=== PATIENT | male | born 1940 | race Caucasian/White ===

== ENCOUNTER → 2017-01-29 | Outpatient (CLI) | payer OTHER, MEDICARE | LOC: MW.LAB 09:14 | PROVIDERS: ATTEND Internal Medicine Interventional Cardiology | DX: I48.2 Chronic atrial fibrillation (principal) | CPT/HCPCS: 36415; 85610 ==

== ENCOUNTER → 2017-02-26 | Outpatient (CLI) | payer OTHER, MEDICARE | LOC: MW.LAB 09:06 | PROVIDERS: ATTEND Internal Medicine Interventional Cardiology | DX: Z51.81 Encounter for therapeutic drug level monitoring (principal) | CPT/HCPCS: 36415; 85610 ==

== ENCOUNTER → 2017-03-26 | Outpatient (CLI) | payer OTHER | LOC: MW.LAB 09:02 | PROVIDERS: ATTEND Internal Medicine Interventional Cardiology | DX: I48.2 Chronic atrial fibrillation (principal) | CPT/HCPCS: 36415; 85610 ==

== ENCOUNTER 2018-04-26 09:31 | Day surgery (SDC) | payer MEDICARE, OTHER ==
[~2018-04-26 09:31] MED LIST: Lactated Ringers 1,000 ML IV SCH
[2018-04-26] MEDS ORDERED: Propofol 200 MG/20 ML SDV ONE ×2 (09:53→10:30)
[2018-04-26] MEDS ORDERED: fentaNYL 100 MCG/2 ML SDV ONE (09:53)
[2018-04-26] MEDS ORDERED: Lidocaine 2% 5 ML SDV ONE (09:53)
[2018-04-26] MEDS ORDERED: Midazolam 1 MG/ML 2 ML SDV ONE (09:53)
--- NOTE | 2018-04-26 10:13 | PCM.PREANE ---
Preanesthetic Assessment - Anesthesia/Transfusion/Family Hx Anesthesia History: Prior Anesthesia Without Reaction Family History of Anesthesia Reaction: No Transfusion History: No Prior Transfusion(s) Intubation History: Unknown - Review of Systems General: No Symptoms Pulmonary: No Symptoms Cardiovascular: No Symptoms Gastrointestinal: No Symptoms, Other (screening colonoscopy) Neurological: No Symptoms Other: Reports: None - Physical Assessment Height: 1.88 m Weight: 109.316 kg ASA Class: 3 Mental Status: Alert & Oriented x3 Airway Class: Mallampati = 2 Dentition: Reports: Normal Dentition, Missing Tooth/Teeth (x1 right upper (back) ) Thyro-Mental Finger Breadths: 3 Mouth Opening Finger Breadths: 2 Lungs: Normal Respiratory Effort Cardiovascular: Regular Rate, Regular Rhythm - Allergies Allergies/Adverse Reactions: Allergies Allergy/AdvReac Type Severity Reaction Status Date / Time codeine Allergy Unknown Stomach Verified 04/23/18 10:19 Upset - Blood Blood Available: No - Anesthesia Plan Pre-Op Medication Ordered: None - Acknowledgements Anesthesia Type Planned: MAC Pt an Appropriate Candidate for the Planned Anesthesia: Yes Alternatives and Risks of Anesthesia Discussed w Pt/Guardian: Yes Pt/Guardian Understands and Agrees with Anesthesia Plan: Yes PreAnesthesia Questionnaire HEENT History: Reports: None Cardiovascular History: Reports: Afib, CAD, High Cholesterol, Hypertension, [place], Stents (x3 all in RCA- 00, , '14) Other Cardiovascular History: [place] x2 small ones Respiratory History: Reports: Bronchitis, Recurrent Genitourinary History: Reports: BPH, Prostate Disorder Other Genitourinary History: hx prostate cancer with radiation Musculoskeletal History: Reports: Fracture, Osteoarthritis Other Musculoskeletal History: hx fx sternum, wrist, clavicle and ribs Neurological History: Endocrine/Metabolic History: Reports: Obesity/BMI 30+ Oncologic (Cancer) History: Reports: Prostate - Infectious Disease History Infectious Disease History: Reports: Influenza - Past Surgical History Head Surgeries/Procedures: Reports: None HEENT Surgical History: Reports: Cataract Surgery, Other (See Below) Other HEENT Surgeries/Procedures: cauterization for nasal bleed under anesthesia Cardiovascular Surgical History: Reports: Coronary Artery Stent Other Cardiovascular Surgeries/Procedures: coronary stent placement x3 Male Surgical History: Other Male Surgeries/Procedures: circumcision 7 yrs ago Musculoskeletal Surgical History: - SUBSTANCE USE Smoking Status *Q: Former Smoker (quit ) Recreational Drug Use History: No - HOME MEDS Home Medications: Home Meds Aspirin 81 mg PO DAILY 02/20/16 [History] Metoprolol Tartrate 50 mg PO BEDTIME 02/20/16 [History] Pravastatin Sodium [Pravachol] 40 mg PO DAILY 02/20/16 [History] Tamsulosin [Flomax] 0.4 mg PO DAILY 02/20/16 [History] Diltiazem [Cardizem CD] 180 mg PO DAILY #30 cap.cd 02/23/16 [Rx] Glucosamine/D3/Boswellia Dara [Osteo Bi-Flex Tablet] 1 tab PO DAILY 04/23/18 [ History] Lutein/Minerals/Vit A,C & E [Ocuvite] 1 tab PO DAILY 04/23/18 [History] Warfarin [Coumadin] 5 mg PO DAILY 04/23/18 [History] - CURRENT (IN HOUSE) MEDS Current Meds: Current Medications Lactated Ringer's (Ringers, Lactated) 1,000 mls @ 125 mls/hr IV ASDIRECTED SHILPA Discontinued Medications Fentanyl (Sublimaze) Confirm Administered Dose 100 mcg .ROUTE .STK-MED ONE Stop: 04/26/18 09:54 Lidocaine (Xylocaine-Mpf 2%) Confirm Administered Dose 5 ml .ROUTE .STK-MED ONE Stop: 04/26/18 09:54 Midazolam HCl (Versed 1 Mg/Ml) Confirm Administered Dose 2 mg .ROUTE .STK-MED ONE Stop: 04/26/18 09:54 Propofol (Diprivan 20 Ml) Confirm Administered Dose 200 mg .ROUTE .STK-MED ONE Stop: 04/26/18 09:54
[2018-04-26] MEDS ORDERED: Lactated Ringers 1,000 ML IV SCH (11:30)
--- NOTE | 2018-04-26 11:31 | PCM.OPNOTE ---
- General Post-Op/Procedure Note Date of Surgery/Procedure: 04/26/18 Operative Procedure(s): Colonoscopy Pre Op Diagnosis: Family history of colon polyps. Desire for colorectal cancer screening. Post-Op Diagnosis: Sigmoid and descending colon diverticulosis Anesthesia Technique: MAC (ASA III) Primary Surgeon: Tee Cook Condition: Good Free Text/Narrative:: DICTATION [id number] CPT CODE 56169
--- NOTE | 2018-04-26 12:18 | PCM48HPAN ---
Post Anesthesia Note - EVALUATION WITHIN 48HRS OF ANESTHETIC Vital Signs in Normal Range: Yes Patient Participated in Evaluation: Yes Respiratory Function Stable: Yes Airway Patent: Yes Cardiovascular Function Stable: Yes Hydration Status Stable: Yes Pain Control Satisfactory: Yes Nausea and Vomiting Control Satisfactory: Yes Mental Status Recovered: Yes Resp Rate: 18 - COMMENTS/OBSERVATIONS Free Text/Narrative:: no anesthesia problems
--- NOTE | 2018-04-26 13:11 | OR ---
SURGEON: Tee Cook M.D. DATE OF PROCEDURE: 04/26/2018 OPERATION PERFORMED: Colonoscopy. ANESTHESIA: MAC. ASA CLASSIFICATION: III. PREOPERATIVE DIAGNOSIS: Desire for colorectal cancer screening. POSTOPERATIVE DIAGNOSIS: Sigmoid diverticulosis. DESCRIPTION OF PROCEDURE: The patient was taken to the endoscopy room and positioned on the endoscopy table in the left lateral decubitus position. Time-out was called for appropriate identification of the patient and procedure. Monitored anesthesia care was provided. The colonoscope was inserted into the rectum and advanced with minimal difficulty to the cecum where the colonoscope was retroflexed to visualize the ascending colon from below. The colonoscope was then straightened and slowly withdrawn. The cecum, ascending colon, hepatic flexure, transverse colon, splenic flexure, descending colon, sigmoid colon, and rectum were very well visualized. No tumors or polyps were encountered. Moderate diverticular changes were noted within the descending colon and sigmoid colon. The colonoscope was withdrawn to the rectum and retroflexed to visualize the anal orifice from above. No tumors or polyps were encountered. There were some chronic hemorrhoidal changes, but no acute changes. No bleeding was noted. The colonoscope was then straightened, the rectum aspirated, and the colonoscope removed. The patient tolerated the procedure well and was taken to recovery room in satisfactory condition. HIRO / ALIRIO /[id number]
[2018-04-26 13:22] VITALS: BP 118/55
== END 2018-04-26 12:50 | disposition home or self-care (01) ==
LOC: MW.SDS 09:31
PROVIDERS: ATTEND Surgery
DX: Z12.11 Encounter for screening for malignant neoplasm of colon (principal); K57.30 Diverticulosis of large intestine without perforation or abscess without bleeding; I10 Essential (primary) hypertension; I25.2 Old myocardial infarction; I25.10 Atherosclerotic heart disease of native coronary artery without angina pectoris; I48.91 Unspecified atrial fibrillation; N40.1 Benign prostatic hyperplasia with lower urinary tract symptoms; R35.1 Nocturia; C61 Malignant neoplasm of prostate; E66.9 Obesity, unspecified; Z68.30 Body mass index [BMI] 30.0-30.9, adult; Z79.01 Long term (current) use of anticoagulants; Z79.82 Long term (current) use of aspirin; Z79.899 Other long term (current) drug therapy; Z88.5 Allergy status to narcotic agent; Z87.891 Personal history of nicotine dependence; Z83.71 Family history of colonic polyps
CPT/HCPCS: 36415; 85610; G0121; J2250; J3010; J7120; J2704

== ENCOUNTER 2020-04-18 01:24 | Observation (INO) | payer MEDICARE, OTHER ==
[2020-04-18] MEDS ORDERED: Sodium Chloride 0.9% 10 ML SDV IV PRN (01:28)
[2020-04-18] MEDS ORDERED: Sodium Chloride 0.9% 10 ML Syringe FLUSH PRN (01:28)
[2020-04-18] MEDS ORDERED: Sodium Chloride 0.9% 2.5 ML Syringe FLUSH PRN (01:28)
--- NOTE | 2020-04-18 01:38 | EDM.PDOC ---
ED HPI GENERAL MEDICAL PROBLEM - General Stated Complaint: CHEST PAIN Time Seen by Provider: 04/18/20 01:27 Source of Information: Reports: Patient History Limitations: Reports: No Limitations - History of Present Illness INITIAL COMMENTS - FREE TEXT/NARRATIVE: 71-year-old male with past medical history of myocardial infarction status post stenting x3, atrial fibrillation on warfarin, hyperlipidemia, prostate cancer presenting with chest pain. [facility]. Reports the onset of substernal chest discomfort around 11 PM this evening, described as "gas". Nothing makes it better or worse, nonradiating, constant symptoms. Reports associated diaphoresis prior to arrival with nausea and one episode of nonbloody emesis. Paramedics administered full dose aspirin , IV Zofran, and 2 doses of sublingual nitroglycerin without relief of symptoms. Patient states nausea is resolved. Denies fever or recent illness. Middle Chest Pain Score (Numeric/FACES): 7 - Related Data Allergies Allergy/AdvReac Type Severity Reaction Status Date / Time codeine Allergy Unknown Stomach Verified 04/18/20 01:34 Upset Home Meds: Home Meds Aspirin 81 mg PO DAILY 02/20/16 [History] Metoprolol Tartrate 50 mg PO BEDTIME 02/20/16 [History] Pravastatin Sodium [Pravachol] 40 mg PO DAILY 02/20/16 [History] Tamsulosin [Flomax] 0.4 mg PO DAILY 02/20/16 [History] Diltiazem [Cardizem CD] 180 mg PO DAILY #30 cap.cd 02/23/16 [Rx] Glucosamine/D3/Boswellia Dara [Osteo Bi-Flex Tablet] 1 tab PO DAILY 04/23/18 [ History] Lutein/Minerals/Vit A,C & E [Ocuvite] 1 tab PO DAILY 04/23/18 [History] Warfarin [Coumadin] 5 mg PO DAILY 04/23/18 [History] Nitroglycerin 0.4 mg SL ASDIRECTED 04/18/20 [History] Past Medical History HEENT History: Reports: None Cardiovascular History: Reports: Afib, CAD, High Cholesterol, Hypertension, [place], Stents (x3 all in RCA- '00, '10, '14) Other Cardiovascular History: [place] x2 small ones Respiratory History: Reports: Bronchitis, Recurrent Genitourinary History: Reports: BPH, Prostate Disorder Other Genitourinary History: hx prostate cancer with radiation Musculoskeletal History: Reports: Fracture, Osteoarthritis Other Musculoskeletal History: hx fx sternum, wrist, clavicle and ribs Neurological History: Endocrine/Metabolic History: Reports: Obesity/BMI 30+ Oncologic (Cancer) History: Reports: Prostate - Infectious Disease History Infectious Disease History: Reports: Influenza - Past Surgical History Head Surgeries/Procedures: Reports: None HEENT Surgical History: Reports: Cataract Surgery, Other (See Below) Other HEENT Surgeries/Procedures: cauterization for nasal bleed under anesthesia Cardiovascular Surgical History: Reports: Coronary Artery Stent Other Cardiovascular Surgeries/Procedures: coronary stent placement x3 Male Surgical History: Other Male Surgeries/Procedures: circumcision 7 yrs ago Musculoskeletal Surgical History: Social & Family History - Family History Family Medical History: Noncontributory HEENT: Reports: Macular Degeneration Cardiac: Reports: [place] Endocrine/Metabolic: Reports: Diabetes, type II Oncologic: Reports: Colon ED ROS GENERAL - Review of Systems Review Of Systems: See Below Constitutional: Reports: No Symptoms. Denies: Fever HEENT: Reports: No Symptoms Respiratory: Reports: No Symptoms. Denies: Shortness of Breath Cardiovascular: Reports: Chest Pain. Denies: Lightheadedness, Palpitations, Syncope Endocrine: Reports: No Symptoms GI/Abdominal: Reports: No Symptoms, Nausea, Vomiting. Denies: Abdominal Pain : Reports: No Symptoms Musculoskeletal: Reports: No Symptoms Skin: Reports: Diaphoresis Neurological: Reports: No Symptoms Psychiatric: Reports: No Symptoms Hematologic/Lymphatic: Reports: No Symptoms Immunologic: Reports: No Symptoms ED EXAM, GENERAL - Physical Exam Exam: See Below Free Text/Narrative:: Vital signs reviewed. Nursing notes reviewed. Constitutional: Awake, alert, non-distressed. Head: Normocephalic, atraumatic. Eyes: EOMI, conjunctiva normal, no discharge, no scleral icterus. Ears, Nose, Throat: External ears and ears normal, moist oral mucosa. Cardiovascular: 2+ radial pulse, capillary refill less than 2 seconds, irregularly irregular pulse, no M/R/G, 1+ edema to the bilateral lower extremities Pulmonary: normal work of breathing, no accessory muscle use, clear to auscultation bilaterally Abdomen/GI: Soft, nontender, nondistended, no guarding or rigidity, no masses. Musculoskeletal: No deformities. Integumentary: Appropriate color for ethnicity, warm, dry, no pallor or jaundice , no rash. Neurologic: Alert, answering questions appropriately, normal speech, no facial droop, moving all extremities well. Psychiatric: Appropriate mood and affect, normal thought process. EKG INTERPRETATION EKG Date: 04/18/20 Time: :20 Rhythm: A-Fib Rate (Beats/Min): 68 [place]: Normal P-Wave: Absent QRS: LBBB ST-T: Normal QT: Normal Comparison: No Change (Compared to most recent ECG on file from 02/21/2016, no significant changes) EKG Interpretation Comments: Atrial fibrillation, left bundle branch block, poor R wave progression Course - Vital Signs Text/Narrative:: Differential diagnosis includes but is not limited to: acute coronary syndrome, pulmonary embolism, thoracic aortic dissection, pneumothorax, pneumonia, pleural effusion, pericardial effusion, GERD/reflux, nonspecific chest pain, myocarditis, and many others. On arrival patient was initially hypertensive with a blood pressure of 209/161, on repeat it was 134/70. Afebrile, hemodynamically stable, nontoxic-appearing. Twelve-lead EKG was obtained, showing no acute ischemic changes, no significant change since most recent EKG in 2016. IV access was established and labs were sent. CBC shows mild thrombocytopenia, INR 2.88 on warfarin. Metabolic panel shows normal electrolytes, mild renal insufficiency, and initial troponin is negative. Two-view chest x-rays are clear. Given additional sublingual nitroglycerin dose without much symptomatic relief. Given additional Zofran and a GI cocktail, with some symptomatic relief. Low suspicion for pulmonary embolism given lack of hypoxia, tachycardia, and nonpleuritic pain description, no asymmetric leg pain or swelling, plus patient is therapeutically anticoagulated. No evidence of pulmonary infiltrate on chest x-rays, no fever, no infectious symptoms. Radial pulses are equal, no radiation of pain to the back, and pulse pressure is not wide, making dissection less likely. HEART score is 7, putting the patient in the high risk category for 30-day MACE. I would favor admission to observation status for an ACS rule out. I discussed the case with the hospitalist (Dr. Tam) who agrees to admit to observation. HEART Score for Major Cardiac Events RESULT SUMMARY: 7 points High Score (7-10 points) Risk of MACE of 50-65%. INPUTS: History > 2 = Highly suspicious EKG > 1 = Non-specific repolarization disturbance Age > 2 = ?65 Risk factors > 2 = ?3 risk factors or history of atherosclerotic disease Initial troponin > 0 = ?normal limit Last Recorded V/S: Last Vital Signs Temp 36 C L 04/18/20 02:12 Pulse 65 04/18/20 02:12 Resp 18 04/18/20 02:12 BP 121/66 04/18/20 02:12 Pulse Ox 97 04/18/20 02:12 - Orders/Labs/Meds Orders: Active Orders 24 hr Category Date Time Status Cardiac Monitoring [RC] . DIRECTED Care 04/18/20 01:29 Active EKG 12 Lead [EKG Documentation Completion] [RC] STAT Care 04/18/20 01:51 Active Pulse Oximetry [RC] ASDIRECTED Care 04/18/20 01:29 Active TROPONIN I [CHEM] Routine Lab 04/18/20 04:25 Ordered Nitroglycerin [Nitrostat] Med 04/18/20 01:47 Active 0.4 mg SL Q5M PRN Sodium Chloride 0.9% [Normal Saline] Med 04/18/20 01:28 Active 10 ml IV ASDIRECTED PRN Sodium Chloride 0.9% [Saline Flush] Med 04/18/20 01:28 Active 10 ml FLUSH ASDIRECTED PRN Sodium Chloride 0.9% [Saline Flush] Med 04/18/20 01:28 Active 2.5 ml FLUSH ASDIRECTED PRN Peripheral IV Insertion Adult [OM.PC] Stat Oth 04/18/20 01:28 Ordered Medication Orders Nitroglycerin (Nitrostat) 0.4 mg SL Q5M PRN PRN Reason: Chest Pain Last Admin: 04/18/20 02:00 Dose: 0.4 mg Sodium Chloride (Saline Flush) 10 ml FLUSH ASDIRECTED PRN PRN Reason: Keep Vein Open Sodium Chloride (Saline Flush) 2.5 ml FLUSH ASDIRECTED PRN PRN Reason: Keep Vein Open Sodium Chloride (Normal Saline) 10 ml IV ASDIRECTED PRN PRN Reason: IV Use Labs: Laboratory Tests 04/18/20 04/18/20 04/18/20 Range/Units 01:25 01:25 01:25 WBC 7.23 (4.0-11.0) K/uL RBC 4.70 (4.50-5.90) M/uL Hgb 14.3 (13.0-17.0) g/dL Hct 42.5 (38.0-50.0) % MCV 90.4 (80.0-98.0) fL MCH 30.4 (27.0-32.0) pg MCHC 33.6 (31.0-37.0) g/dL RDW Std Deviation 42.7 (28.0-62.0) fl RDW Coeff of Jr 13 (11.0-15.0) % Plt Count 124 L (150-400) K/uL MPV 10.80 (7.40-12.00) fL Neut % (Auto) 68.1 (48.0-80.0) % Lymph % (Auto) 18.5 (16.0-40.0) % [place] % (Auto) 10.5 (0.0-15.0) % Eos % (Auto) 2.6 (0.0-7.0) % Baso % (Auto) 0.3 (0.0-1.5) % Neut # (Auto) 4.9 (1.4-5.7) K/uL Lymph # (Auto) 1.3 (0.6-2.4) K/uL [place] # (Auto) 0.8 (0.0-0.8) K/uL Eos # (Auto) 0.2 (0.0-0.7) K/uL Baso # (Auto) 0.0 (0.0-0.1) K/uL INR 2.88 Sodium 140 (136-148) mmol/L Potassium 4.0 (3.5-5.1) mmol/L Chloride 102 (98-107) mmol/L Carbon Dioxide 24.9 (21.0-32.0) mmol/L BUN 31 H (7.0-18.0) mg/dL Creatinine 1.4 H (0.8-1.3) mg/dL Est Cr Clr Drug Dosing TNP Estimated GFR (MDRD) 49.0 ml/min Glucose 178 H (74-106) mg/dL Calcium 9.5 (8.5-10.1) mg/dL Total Bilirubin 0.6 (0.2-1.0) mg/dL AST 24 (15-37) IU/L ALT 20 (14-63) IU/L Alkaline Phosphatase 84 (46-116) U/L Troponin I < 0.050 (0.000-0.056) ng/mL Total Protein 7.3 (6.4-8.2) g/dL Albumin 4.2 (3.4-5.0) g/dL Globulin 3.1 (2.6-4.0) g/dL Albumin/Globulin Ratio 1.4 (0.9-1.6) Meds: Medications Generic Name Dose Route Start Last Admin Trade Name Freq PRN Reason Stop Dose Admin Nitroglycerin 0.4 mg 04/18/20 01:47 04/18/20 02:00 Nitrostat SL 0.4 mg Q5M PRN Administration Chest Pain Sodium Chloride 10 ml 04/18/20 01:28 Saline Flush FLUSH ASDIRECTED PRN Keep Vein Open Sodium Chloride 2.5 ml 04/18/20 01:28 Saline Flush FLUSH ASDIRECTED PRN Keep Vein Open Sodium Chloride 10 ml 04/18/20 01:28 Normal Saline IV ASDIRECTED PRN IV Use Discontinued Medications Generic Name Dose Route Start Last Admin Trade Name Freq PRN Reason Stop Dose Admin Al Hydroxide/Mg Hydroxide 15 0 ml 04/18/20 02:16 04/18/20 02:22 ml/ Lidocaine HCl 5 ml PO 04/18/20 02:17 20 each ONETIME ONE Administration Ondansetron HCl 4 mg 04/18/20 02:01 04/18/20 02:06 Zofran IVPUSH 04/18/20 02:02 4 mg ONETIME ONE Administration Departure - Departure Time of Disposition: 02:00 Disposition: Refer to Observation Clinical Impression: Chest pain in adult Sepsis Event Note - Evaluation Sepsis Screening Result: No Definite Risk - Focused Exam Vital Signs: Vital Signs Temp Pulse Resp BP BP Pulse Ox 04/18/20 02:00 145/73 H 04/18/20 01:40 18 134/70 98 04/18/20 01:31 36.3 C 78 20 209/161 H 97 Date Exam was Performed: 04/18/20 Time Exam was Performed: 03:02 - My Orders Last 24 Hours: My Active Orders 04/18/20 01:28 Sodium Chloride 0.9% [Normal Saline] 10 ml IV ASDIRECTED PRN Sodium Chloride 0.9% [Saline Flush] 10 ml FLUSH ASDIRECTED PRN Sodium Chloride 0.9% [Saline Flush] 2.5 ml FLUSH ASDIRECTED PRN Peripheral IV Insertion Adult [OM.PC] Stat 04/18/20 01:29 Cardiac Monitoring [RC] . DIRECTED Pulse Oximetry [RC] ASDIRECTED 04/18/20 01:47 Nitroglycerin [Nitrostat] 0.4 mg SL Q5M PRN 04/18/20 01:51 EKG 12 Lead [EKG Documentation Completion] [RC] STAT 04/18/20 04:25 TROPONIN I [CHEM] Routine - Assessment/Plan Last 24 Hours: My Active Orders 04/18/20 01:28 Sodium Chloride 0.9% [Normal Saline] 10 ml IV ASDIRECTED PRN Sodium Chloride 0.9% [Saline Flush] 10 ml FLUSH ASDIRECTED PRN Sodium Chloride 0.9% [Saline Flush] 2.5 ml FLUSH ASDIRECTED PRN Peripheral IV Insertion Adult [OM.PC] Stat 04/18/20 01:29 Cardiac Monitoring [RC] . DIRECTED Pulse Oximetry [RC] ASDIRECTED 04/18/20 01:47 Nitroglycerin [Nitrostat] 0.4 mg SL Q5M PRN 04/18/20 01:51 EKG 12 Lead [EKG Documentation Completion] [RC] STAT 04/18/20 04:25 TROPONIN I [CHEM] Routine
[2020-04-18] MEDS ORDERED: Nitroglycerin 0.4 MG Tab.SL SL PRN (01:47)
[2020-04-18 01:58] LABS: BLOOD UREA NITROGEN,BUN 31 mg/dL (7.0-18.0); CARBON DIOXIDE,CO2 24.9 mmol/L (21.0-32.0); CHLORIDE,CL 102 mmol/L (98-107); GLUCOSE RANDOM 178 mg/dL (74-106); SODIUM,NA 140 mmol/L (136-148)
[2020-04-18] MEDS ORDERED: Ondansetron 4 MG/2 ML SDV IVPUSH ONE (02:01)
[2020-04-18] MEDS ORDERED: Alum Hydrox/Mag Hydrox/Simeth 15 ML, Lidocaine 2% 5 ML PO ONE ×2 (02:16)
--- NOTE | 2020-04-18 02:17 | CR ---
INDICATION: Chest pain COMPARISON: Two-view chest radiograph 04/28/2019 TECHNIQUE: Frontal and lateral views of the chest FINDINGS: The lungs are clear. There is no pleural effusion or pneumothorax. The cardiomediastinal silhouette is normal. The osseous structures are unremarkable. IMPRESSION: No acute intrathoracic process. Dictated by Jen Ahumada MD @ Apr 18 2020 2:13AM Signed by Dr. Jen Ahumada @ Apr 18 2020 2:14AM
[2020-04-18] MEDS ORDERED: Acetaminophen 325 MG Tab PO PRN (03:34)
[2020-04-18 07:51] VITALS: BP 146/70; PULSE 74
--- NOTE | 2020-04-18 09:38 | PCM.HP.2 ---
H&P History of Present Illness - General Date of Service: 04/18/20 Admit Problem/Dx: Admission Diagnosis/Problem Admission Diagnosis/Problem Chest pain in adult - History of Present Illness Initial Comments - Free Text/Narative: 79 yo male with pmh of CAD, [place] s/p PCI x3, atrial fibrillation on coumadin who presents to the ED with several hours of chest pain. Patient reports substernal chest burning. He thought it might of been heart burn or gas but it did not improve with tums. He called EMS who took him to the ED. In the ED he was noted to have a BP of 209/161, HR of 78. He was giving nitro SL but didn' t have relief of pain until after given GI cocktail. Initial EKG and troponin were negative for signs of acute ischemia. Middle Chest Pain Score (Numeric/FACES): 7 - Related Data Allergies/Adverse Reactions: Allergies Allergy/AdvReac Type Severity Reaction Status Date / Time codeine Allergy Unknown Stomach Verified 04/18/20 03:27 Upset Home Medications: Home Meds Aspirin 81 mg PO DAILY 02/20/16 [History] Metoprolol Tartrate 50 mg PO BEDTIME 02/20/16 [History] Pravastatin Sodium [Pravachol] 40 mg PO DAILY 02/20/16 [History] Tamsulosin [Flomax] 0.4 mg PO DAILY 02/20/16 [History] Diltiazem [Cardizem CD] 180 mg PO DAILY #30 cap.cd 02/23/16 [Rx] Glucosamine/D3/Boswellia Dara [Osteo Bi-Flex Tablet] 1 tab PO BID 04/23/18 [ History] Lutein/Minerals/Vit A,C & E [Ocuvite] 1 tab PO DAILY 04/23/18 [History] Warfarin [Coumadin] 5 mg PO DAILY 04/23/18 [History] Nitroglycerin 0.4 mg SL ASDIRECTED 04/18/20 [History] Past Medical History HEENT History: Reports: None Cardiovascular History: Reports: Afib, CAD, High Cholesterol, Hypertension, [place], Stents (x3 all in [facility]CA- '00, '10, '14) Other Cardiovascular History: [place] x2 small ones Respiratory History: Reports: Bronchitis, Recurrent Gastrointestinal History: Reports: None Genitourinary History: Reports: BPH, Prostate Disorder Other Genitourinary History: hx prostate cancer with radiation Musculoskeletal History: Reports: Fracture, Osteoarthritis Other Musculoskeletal History: hx fx sternum, wrist, clavicle and ribs Neurological History: Psychiatric History: Reports: Depression Endocrine/Metabolic History: Reports: Obesity/BMI 30+ Hematologic History: Reports: None Immunologic History: Reports: None Oncologic (Cancer) History: Reports: Prostate Dermatologic History: Reports: None - Infectious Disease History Infectious Disease History: Reports: Influenza - Past Surgical History Head Surgeries/Procedures: Reports: None HEENT Surgical History: Reports: Cataract Surgery, Other (See Below) Other HEENT Surgeries/Procedures: cauterization for nasal bleed under anesthesia Cardiovascular Surgical History: Reports: Coronary Artery Stent Other Cardiovascular Surgeries/Procedures: coronary stent placement x3 Male Surgical History: Other Male Surgeries/Procedures: circumcision 7 yrs ago Musculoskeletal Surgical History: Social & Family History - Family History Family Medical History: Noncontributory HEENT: Reports: Macular Degeneration Cardiac: Reports: [place] Endocrine/Metabolic: Reports: Diabetes, type II Oncologic: Reports: Colon - Tobacco Use Smoking Status *Q: Former Smoker Used Tobacco, but Quit: Yes Month/Year Tobacco Last Used: 1980 - Caffeine Use Caffeine Use: Reports: Coffee - Recreational Drug Use Recreational Drug Use: No H&P Review of Systems - Review of Systems: Review Of Systems: Comprehensive ROS is negative, except as noted in HPI. Exam - Exam Exam: See Below - Vital Signs Vital Signs: Last Vital Signs Temp 36.3 C 04/18/20 07:50 Pulse 74 04/18/20 07:50 Resp 16 04/18/20 07:50 BP 146/70 H 04/18/20 07:50 Pulse Ox 95 04/18/20 07:50 Weight: 111.765 kg - Exam General: Alert, Oriented HEENT: Mucosa Moist & [place] Neck: Supple Lungs: Clear to Auscultation, Normal Respiratory Effort Cardiovascular: Regular Rate, Regular Rhythm GI/Abdominal Exam: Normal Bowel Sounds, Soft, Non-Tender Extremities: Non-Tender, No Pedal Edema Skin: Warm, Dry, Intact Neurological: No: Focal Deficit - Patient Data Lab Results Last 24 hrs: Laboratory Results - last 24 hr 04/18/20 04/18/20 04/18/20 Range/Units 01:25 01:25 01:25 WBC 7.23 (4.0-11.0) K/uL RBC 4.70 (4.50-5.90) M/uL Hgb 14.3 (13.0-17.0) g/dL Hct 42.5 (38.0-50.0) % MCV 90.4 (80.0-98.0) fL MCH 30.4 (27.0-32.0) pg MCHC 33.6 (31.0-37.0) g/dL RDW Std Deviation 42.7 (28.0-62.0) fl RDW Coeff of Jr 13 (11.0-15.0) % Plt Count 124 L (150-400) K/uL MPV 10.80 (7.40-12.00) fL Neut % (Auto) 68.1 (48.0-80.0) % Lymph % (Auto) 18.5 (16.0-40.0) % [place] % (Auto) 10.5 (0.0-15.0) % Eos % (Auto) 2.6 (0.0-7.0) % Baso % (Auto) 0.3 (0.0-1.5) % Neut # (Auto) 4.9 (1.4-5.7) K/uL Lymph # (Auto) 1.3 (0.6-2.4) K/uL [place] # (Auto) 0.8 (0.0-0.8) K/uL Eos # (Auto) 0.2 (0.0-0.7) K/uL Baso # (Auto) 0.0 (0.0-0.1) K/uL INR 2.88 Sodium 140 (136-148) mmol/L Potassium 4.0 (3.5-5.1) mmol/L Chloride 102 (98-107) mmol/L Carbon Dioxide 24.9 (21.0-32.0) mmol/L BUN 31 H (7.0-18.0) mg/dL Creatinine 1.4 H (0.8-1.3) mg/dL Est Cr Clr Drug Dosing TNP Estimated GFR (MDRD) 49.0 ml/min Glucose 178 H (74-106) mg/dL Calcium 9.5 (8.5-10.1) mg/dL Total Bilirubin 0.6 (0.2-1.0) mg/dL AST 24 (15-37) IU/L ALT 20 (14-63) IU/L Alkaline Phosphatase 84 (46-116) U/L Troponin I < 0.050 (0.000-0.056) ng/mL Total Protein 7.3 (6.4-8.2) g/dL Albumin 4.2 (3.4-5.0) g/dL Globulin 3.1 (2.6-4.0) g/dL Albumin/Globulin Ratio 1.4 (0.9-1.6) 04/18/20 Range/Units 07:30 WBC (4.0-11.0) K/uL RBC (4.50-5.90) M/uL Hgb (13.0-17.0) g/dL Hct (38.0-50.0) % MCV (80.0-98.0) fL MCH (27.0-32.0) pg MCHC (31.0-37.0) g/dL RDW Std Deviation (28.0-62.0) fl RDW Coeff of Jr (11.0-15.0) % Plt Count (150-400) K/uL MPV (7.40-12.00) fL Neut % (Auto) (48.0-80.0) % Lymph % (Auto) (16.0-40.0) % [place] % (Auto) (0.0-15.0) % Eos % (Auto) (0.0-7.0) % Baso % (Auto) (0.0-1.5) % Neut # (Auto) (1.4-5.7) K/uL Lymph # (Auto) (0.6-2.4) K/uL [place] # (Auto) (0.0-0.8) K/uL Eos # (Auto) (0.0-0.7) K/uL Baso # (Auto) (0.0-0.1) K/uL INR Sodium (136-148) mmol/L Potassium (3.5-5.1) mmol/L Chloride (98-107) mmol/L Carbon Dioxide (21.0-32.0) mmol/L BUN (7.0-18.0) mg/dL Creatinine (0.8-1.3) mg/dL Est Cr Clr Drug Dosing Estimated GFR (MDRD) ml/min Glucose (74-106) mg/dL Calcium (8.5-10.1) mg/dL Total Bilirubin (0.2-1.0) mg/dL AST (15-37) IU/L ALT (14-63) IU/L Alkaline Phosphatase (46-116) U/L Troponin I < 0.050 (0.000-0.056) ng/mL Total Protein (6.4-8.2) g/dL Albumin (3.4-5.0) g/dL Globulin (2.6-4.0) g/dL Albumin/Globulin Ratio (0.9-1.6) Result Diagrams: 04/18/20 01:25 04/18/20 01:25 Sepsis Event Note - Evaluation Sepsis Screening Result: No Definite Risk - Focused Exam Vital Signs: Vital Signs Temp Pulse Resp BP BP Pulse Ox 04/18/20 07:50 36.3 C 74 16 146/70 H 95 04/18/20 04:20 36.3 C 63 16 114/61 95 04/18/20 03:00 36.2 C 64 17 124/66 96 04/18/20 02:12 36 C L 65 18 121/66 97 04/18/20 02:00 145/73 H 04/18/20 01:40 18 134/70 98 04/18/20 01:31 36.3 C 78 20 209/161 H 97 Date Exam was Performed: 04/20/20 Time Exam was Performed: 12:00 Problem List Initiated/Reviewed/Updated: Yes Orders Last 24hrs: Active Orders 24 hr Category Date Time Status Patient Status [ADT] Stat ADT 04/18/20 02:12 Active Cardiac Monitoring [RC] . DIRECTED Care 04/18/20 01:29 Active EKG 12 Lead [EKG Documentation Completion] [RC] STAT Care 04/18/20 01:51 Active Pulse Oximetry [RC] ASDIRECTED Care 04/18/20 01:29 Active Telemetry Monitoring [Cardiac Monitoring] [RC] Q8H Care 04/18/20 02:25 Active Vital Signs [RC] Q4H Care 04/18/20 03:33 Active Regular Diet [DIET] Diet 04/18/20 Breakfast Active TROPONIN I [CHEM] Q6H Lab 04/18/20 13:25 Ordered Acetaminophen [Tylenol] Med 04/18/20 03:34 Active 650 mg PO Q6H PRN Nitroglycerin [Nitrostat] Med 04/18/20 01:47 Active 0.4 mg SL Q5M PRN Sodium Chloride 0.9% [Normal Saline] Med 04/18/20 01:28 Active 10 ml IV ASDIRECTED PRN Sodium Chloride 0.9% [Saline Flush] Med 04/18/20 01:28 Active 10 ml FLUSH ASDIRECTED PRN Sodium Chloride 0.9% [Saline Flush] Med 04/18/20 01:28 Active 2.5 ml FLUSH ASDIRECTED PRN Peripheral IV Insertion Adult [OM.PC] Stat Oth 04/18/20 01:28 Ordered Medication Orders Acetaminophen (Tylenol) 650 mg PO Q6H PRN PRN Reason: Pain Nitroglycerin (Nitrostat) 0.4 mg SL Q5M PRN PRN Reason: Chest Pain Last Admin: 04/18/20 02:00 Dose: 0.4 mg Sodium Chloride (Saline Flush) 10 ml FLUSH ASDIRECTED PRN PRN Reason: Keep Vein Open Sodium Chloride (Saline Flush) 2.5 ml FLUSH ASDIRECTED PRN PRN Reason: Keep Vein Open Sodium Chloride (Normal Saline) 10 ml IV ASDIRECTED PRN PRN Reason: IV Use Assessment/Plan Comment:: 79 yo male admitted for chest pain. He was monitored overnight with no events on telemetry. He ruled out for acute coronary syndrome with serial negative cardiac enzymes. He was discharged home to have follow up with Dr. Gusman.
[2020-04-18] MEDS ORDERED: Aspirin 81 MG Tab.Chew PO SCH (10:30)
[2020-04-18] MEDS ORDERED: Diltiazem 180 MG Cap.CD PO SCH (10:30)
[2020-04-18] MEDS ORDERED: Tamsulosin 0.4 MG Cap.ER PO SCH (10:30)
[2020-04-18] MEDS ORDERED: Warfarin 5 MG Tab PO SCH (10:30)
[2020-04-18] MEDS ORDERED: Metoprolol Tartrate 50 MG Tab PO SCH (21:00)
[2020-04-19] MEDS ORDERED: Pravastatin 40 MG Tab PO SCH (09:00)
== END 2020-04-18 15:55 | disposition home or self-care (01) ==
LOC: MW.ED 01:24 → MW.MS 02:12
PROVIDERS: ADMIT Internal Medicine; ATTEND Internal Medicine
DX: R07.2 Precordial pain (principal); E78.00 Pure hypercholesterolemia, unspecified; I10 Essential (primary) hypertension; E66.9 Obesity, unspecified; E78.5 Hyperlipidemia, unspecified; N40.0 Benign prostatic hyperplasia without lower urinary tract symptoms; I25.10 Atherosclerotic heart disease of native coronary artery without angina pectoris; F32.9 Major depressive disorder, single episode, unspecified; I48.91 Unspecified atrial fibrillation; Z95.5 Presence of coronary angioplasty implant and graft; Z87.891 Personal history of nicotine dependence; Z88.5 Allergy status to narcotic agent; Z79.82 Long term (current) use of aspirin; Z79.899 Other long term (current) drug therapy; Z79.01 Long term (current) use of anticoagulants; Z68.31 Body mass index [BMI] 31.0-31.9, adult
CPT/HCPCS: 36415; 71046; 80053; 84484; 85025; 85610; 93005; A9270; J2405; 96374; 99285; 99285-25; G0378

== ENCOUNTER 2021-11-11 09:28 | Emergency (ER) | payer SELFPAY ==
--- NOTE | 2021-11-11 09:51 | EDM.PDOC ---
ED HPI GENERAL MEDICAL PROBLEM - General Chief Complaint: ENT Problem Stated Complaint: NOSE BLEED Time Seen by Provider: 11/11/21 09:28 - History of Present Illness INITIAL COMMENTS - FREE TEXT/NARRATIVE: 81-year-old male with history of cardiac disease a history of A. fib on Coumadin last had his INR checked 3 weeks ago was presenting with left-sided epistaxis. Patient has a prior history of significant issues with epistaxis he had an otolaryngology procedure some years ago and the surgeon intervened on a vein this kept his nosebleeds under control for some years but during this winter as it is gotten colder they have restarted again. He has been having more trouble off and on for the last week but seem to have them under control until this morning when it started approximately an hour prior to arrival and he has been unable to get it to stop. No other symptoms no chest pain no trouble breathing symptoms without alleviating factors radiation or other associated symptoms. - Related Data Allergies Allergy/AdvReac Type Severity Reaction Status Date / Time codeine Allergy Unknown Stomach Verified 11/11/21 09:36 Upset Home Meds: Home Meds Aspirin 81 mg PO DAILY 02/20/16 [History] Metoprolol Tartrate 50 mg PO BEDTIME 02/20/16 [History] Pravastatin Sodium [Pravachol] 40 mg PO DAILY 02/20/16 [History] Tamsulosin [Flomax] 0.4 mg PO DAILY 02/20/16 [History] Diltiazem [Cardizem CD] 180 mg PO DAILY #30 cap.cd 02/23/16 [Rx] Glucosamine/D3/Boswellia Dara [Osteo Bi-Flex Tablet] 1 tab PO BID 04/23/18 [History] Lutein/Minerals/Vit A,C & E [Ocuvite] 1 tab PO DAILY 04/23/18 [History] Warfarin [Coumadin] 5 mg PO DAILY 04/23/18 [History] Nitroglycerin 0.4 mg SL ASDIRECTED 04/18/20 [History] Past Medical History HEENT History: Reports: Epistaxis Cardiovascular History: Reports: Afib, CAD, High Cholesterol, Hypertension, [place], Stents Other Cardiovascular History: [place] x2 small ones Respiratory History: Reports: Bronchitis, Recurrent Gastrointestinal History: Reports: None Genitourinary History: Reports: BPH, Prostate Disorder Other Genitourinary History: hx prostate cancer with radiation Musculoskeletal History: Reports: Fracture, Osteoarthritis Other Musculoskeletal History: hx fx sternum, wrist, clavicle and ribs Neurological History: Psychiatric History: Reports: Depression Endocrine/Metabolic History: Reports: Obesity/BMI 30+ Hematologic History: Reports: None Immunologic History: Reports: None Oncologic (Cancer) History: Reports: Prostate Dermatologic History: Reports: None - Infectious Disease History Infectious Disease History: Reports: Influenza - Past Surgical History Head Surgeries/Procedures: Reports: None HEENT Surgical History: Reports: Cataract Surgery, Other (See Below) Other HEENT Surgeries/Procedures: cauterization for nasal bleed under anesthesia Cardiovascular Surgical History: Reports: Coronary Artery Stent Other Cardiovascular Surgeries/Procedures: coronary stent placement x3 Other Male Surgeries/Procedures: circumcision 7 yrs ago Social & Family History - Family History Family Medical History: No Pertinent Family History HEENT: Reports: Macular Degeneration Cardiac: Reports: [place] Endocrine/Metabolic: Reports: Diabetes, type II Oncologic: Reports: Colon - Tobacco Use Tobacco Use Status *Q: Never Tobacco User - Caffeine Use Caffeine Use: Reports: Coffee - Recreational Drug Use Recreational Drug Use: No ED ROS GENERAL - Review of Systems Review Of Systems: See Below Free Text/Narrative/Comment: General: No fever. Eyes: No vision problems. ENT: Per HPI Neck: No neck stiffness. Respiratory: No shortness of breath. Cardiac: No chest pain. Gastrointestinal: No nausea, vomiting or abdominal pain. Musculoskeletal: No myalgias/arthralgias. Neurologic: No headache. ED EXAM, GENERAL - Physical Exam Exam: See Below Free Text/Narrative:: General Appearance: No acute distress, appears comfortable Skin: No rash HEENT: Normocephalic/atraumatic, sclera anicteric, mucous membranes moist, slow but persistent bleeding from the left nares no visible vessel clear source identified, no stridor no wheezing patient easily able to handle his secretions Neck: Normal range of motion Chest and Lungs: Bilateral breath sounds, clear to auscultation Cardiovascular: Intact distal perfusion Psychiatric: Appropriate, cooperative ED GENERAL MEDICAL PROCEDURES - Additional/Other Procedure(s) Other (Free Text) Procedure(s): After patient consent was obtained a single cottonball soaked in tranexamic acid was inserted into the left nares and direct pressure was reapplied using the nasal clip the patient tolerated the procedure well without immediate complication. Course - Vital Signs Last Recorded V/S: Last Vital Signs Temp 96.4 F L 11/11/21 09:31 Pulse 86 11/11/21 09:31 Resp 18 11/11/21 09:31 BP 120/70 11/11/21 09:31 Pulse Ox 97 11/11/21 09:31 - Orders/Labs/Meds Labs: Laboratory Tests 11/11/21 Range/Units 10:02 INR 2.33 Meds: Medications Discontinued Medications Generic Name Dose Route Start Last Admin Trade Name Katy PRN Reason Stop Dose Admin Tranexamic Acid 1,000 mg 11/11/21 09:29 11/11/21 09:40 Tranexamic Acid 1,000 Mg/10 Ml Amp TOP 11/11/21 09:38 1,000 mg ONETIME ONE Administration Departure - Departure Time of Disposition: 11:55 Disposition: Home, Self-Care 01 Condition: Good Clinical Impression: Epistaxis - Discharge Information *PRESCRIPTION DRUG MONITORING PROGRAM REVIEWED*: Not Applicable *COPY OF PRESCRIPTION DRUG MONITORING REPORT IN PATIENT YUNIEL: Not Applicable Instructions: Nosebleed, Adult, [id number] Forms: ED Department Discharge Additional Instructions: Your INR today was good at 2.3. Please continue to use the head [place] fire and other techniques that you have been using to try and limit you nosebleeds. The following information is given to patients seen in the emergency department who are being discharged to home. This information is to outline your options for follow-up care. We provide all patients seen in our emergency department with a follow-up referral. The need for follow-up, as well as the timing and circumstances, are variable depending upon the specifics of your emergency department visit. If you don't have a primary care physician on staff, we will provide you with a referral. We always advise you to contact your personal physician following an emergency department visit to inform them of the circumstance of the visit and for follow-up with them and/or the need for any referrals to a consulting specialist. The emergency department will also refer you to a specialist when appropriate. This referral assures that you have the opportunity for follow-up care with a specialist. All of these measure are taken in an effort to provide you with optimal care, which includes your follow-up. Under all circumstances we always encourage you to contact your private physician who remains a resource for coordinating your care. When calling for follow-up care, please make the office aware that this follow-up is from your recent emergency room visit. If for any reason you are refused follow-up, please contact the [facility] Emergency Department at and asked to speak to the emergency department charge nurse. Sepsis Event Note (ED) - Evaluation Sepsis Screening Result: No Definite Risk - Focused Exam Vital Signs: Vital Signs Temp Pulse Resp BP Pulse Ox 11/11/21 09:31 96.4 F L 86 18 120/70 97 - Assessment/Plan Assessment:: 81-year-old male on Coumadin presenting with left-sided epistaxis. We will check an INR left nares packed with TXA soaked cotton and will reassess in 20 minutes. 1155: INR appropriate patient continues to have no bleeding after the packing was removed sometime ago patient felt stable for discharge.
[2021-11-11 12:16] VITALS: BP 151/83; PULSE 75
== END 2021-11-11 12:14 | disposition home or self-care (01) ==
LOC: MW.ED 09:28
DX: R04.0 Epistaxis (principal); I48.91 Unspecified atrial fibrillation; I25.10 Atherosclerotic heart disease of native coronary artery without angina pectoris; E78.00 Pure hypercholesterolemia, unspecified; I10 Essential (primary) hypertension; I25.2 Old myocardial infarction; E66.9 Obesity, unspecified; Z68.30 Body mass index [BMI] 30.0-30.9, adult; Z95.5 Presence of coronary angioplasty implant and graft; Z79.01 Long term (current) use of anticoagulants; Z88.5 Allergy status to narcotic agent; Z79.82 Long term (current) use of aspirin; Z79.899 Other long term (current) drug therapy
CPT/HCPCS: 36415; 85610; 99283

== ENCOUNTER 2022-10-14 10:56 | Emergency (ER) | payer MEDICARE, OTHER ==
[2022-10-14 11:42] VITALS: BP 96/66; PULSE 73
[2022-10-14] MEDS ORDERED: Lidocaine 2% Viscous Solution 100 ML Bottle PO ONE (11:51)
[2022-10-14] MEDS ORDERED: Tranexamic Acid 1,000 MG/10 ML Vial IV ONE (11:51)
[2022-10-14] MEDS ORDERED: Lidocaine 2% Viscous Solution 15 ML UD PO ONE (12:02)
[2022-10-14] MEDS ORDERED: Amoxicillin/Clavulanate K 875-125 MG Tab PO ONE (12:36)
== END 2022-10-14 13:40 | disposition home or self-care (01) ==
LOC: MW.ED 10:56
DX: R04.0 Epistaxis (principal); I25.10 Atherosclerotic heart disease of native coronary artery without angina pectoris; E78.00 Pure hypercholesterolemia, unspecified; I10 Essential (primary) hypertension; Z88.5 Allergy status to narcotic agent; Z79.82 Long term (current) use of aspirin; Z79.899 Other long term (current) drug therapy; Z79.01 Long term (current) use of anticoagulants; Z87.891 Personal history of nicotine dependence
CPT/HCPCS: 30903; 36415; 85610; 96374; 99283; A9270

== ENCOUNTER 2023-10-17 11:36 | Emergency (ER) | payer MEDICARE, OTHER ==
[2023-10-17] MEDS ORDERED: Fluticasone NASAL Spray 16 GM Bottle NASBOTH STA (12:10)
[2023-10-17 13:11] VITALS: BP 135/71; PULSE 76
== END 2023-10-17 13:10 | disposition home or self-care (01) ==
LOC: MW.ED 11:36
DX: R04.0 Epistaxis (principal); I10 Essential (primary) hypertension; E78.00 Pure hypercholesterolemia, unspecified; I25.10 Atherosclerotic heart disease of native coronary artery without angina pectoris; I48.91 Unspecified atrial fibrillation; I25.2 Old myocardial infarction; Z95.5 Presence of coronary angioplasty implant and graft; Z79.82 Long term (current) use of aspirin; Z79.899 Other long term (current) drug therapy; Z79.01 Long term (current) use of anticoagulants; Z88.5 Allergy status to narcotic agent
CPT/HCPCS: 99282

== ENCOUNTER 2024-02-22 12:09 | Emergency (ER) | payer MEDICARE, OTHER ==
[2024-02-22] MEDS: Oxymetazoline 0.05% Nasal Spray 30 ML Bottle NAS ONE (12:40)
[2024-02-22 13:23] VITALS: BP 124/84; PULSE 80
== END 2024-02-22 13:47 | disposition home or self-care (01) ==
LOC: MW.ED 12:09
DX: R04.0 Epistaxis (principal); I10 Essential (primary) hypertension; Z88.5 Allergy status to narcotic agent; Z79.82 Long term (current) use of aspirin; Z79.01 Long term (current) use of anticoagulants; Z79.899 Other long term (current) drug therapy; Z95.5 Presence of coronary angioplasty implant and graft; Z75.8 Other problems related to medical facilities and other health care
CPT/HCPCS: 30903; 99283; A9270

== ENCOUNTER 2024-05-31 00:39 | Observation (INO) | payer OTHER, MEDICARE ==
[2024-05-31] MEDS: Alum Hydro/Mag Hydro/Simeth XS 15 ML, Lidocaine 2% 5 ML PO ONE (01:16)
[2024-05-31] MEDS: Sodium Chloride 0.9% 10 ML Syringe FLUSH PRN (01:16)
[2024-05-31] MEDS: Sodium Chloride 0.9% 2.5 ML Syringe FLUSH PRN (01:16)
[2024-05-31] MEDS: Nitroglycerin 0.4 MG Tab.SL SL PRN (01:16)
[2024-05-31] MEDS: Aspirin 81 MG Tab.Chew PO SCH (01:16)
[2024-05-31 01:22] LABS: BASOPHILS ABSOLUTE AUTO 0.06 K/uL (0.00-0.20); BASOPHILS PERCENT AUTO 0.6 % (0.0-1.0); EOSINOPHILS ABSOLUTE AUTO 0.11 K/uL (0.00-0.45); EOSINOPHILS PERCENT AUTO 1.1 % (0.0-6.0); HEMATOCRIT 43.4 % (42.0-52.0); HEMOGLOBIN 14.7 g/dL (14.0-18.0); IMMATURE GRAN ABSOLUTE AUTO 0.02 K/uL (0.00-0.05); IMMATURE GRAN PERCENT AUTO 0.2 % (0.0-0.4); LYMPHOCYTES ABSOLUTE AUTO 0.89 K/uL (1.00-4.80); LYMPHOCYTES PERCENT AUTO 9.2 % (24.0-44.0); MEAN CORPUSCULAR HEMOGLOBIN 30.5 pg (28.0-32.0); MEAN CORPUSCULAR HGB CONC 33.9 g/dL (32.0-36.0); MEAN PLATELET VOLUME 10.7 fL (9.4-12.4); MONOCYTES ABSOLUTE AUTO 0.77 K/uL (0.00-0.80); NEUTROPHILS ABSOLUTE AUTO 7.82 K/uL (1.80-7.70); NEUTROPHILS PERCENT AUTO 80.9 % (41.0-71.0); PLATELET COUNT,PLT 137 K/uL (150-400); RED BLOOD CELL COUNT 4.82 M/uL (4.52-5.90); WHITE BLOOD CELL COUNT,WBC 9.67 K/uL (3.9-11.3)
[2024-05-31 01:28] LABS: INR 2.58 (0.86-1.11)
[2024-05-31 01:40] LABS: A/G RATIO 1.2 (0.9-1.6); ALBUMIN 4.1 g/dL (3.4-5.0); BILIRUBIN TOTAL 0.7 mg/dL (0.2-1.0); CALCIUM 9.5 mg/dL (8.5-10.1); CREATININE 1.2 mg/dL (0.8-1.3); EST CRCL DRUG DOSING (CG) 50.55 mL/min; POTASSIUM,K 3.6 mmol/L (3.5-5.1); PROTEIN TOTAL,TP 7.4 g/dL (6.4-8.2)
[2024-05-31] MEDS: Ondansetron 4 MG/2 ML SDV IVPUSH ONE (01:43)
[2024-05-31] MEDS: Iopamidol 755 MG/ML 500 ML Multipack Bottle IVPUSH STA (02:42)
[2024-05-31 05:00] LABS: APPEARANCE,URINE HAZY; BILIRUBIN,URINE NEGATIVE (NEGATIVE); COLOR,URINE YELLOW; GLUCOSE,URINE NEGATIVE (NEGATIVE); KETONES,URINE NEGATIVE (NEGATIVE); LEUKOCYTE ESTERASE,URINE NEGATIVE (NEGATIVE); NITRITE,URINE NEGATIVE (NEGATIVE); OCCULT BLOOD,URINE NEGATIVE (NEGATIVE); PH,URINE 7.5 (5.0-8.0); PROTEIN,URINE NEGATIVE (NEGATIVE); UROBILINOGEN,URINE 0.2 EU/dL (<2.0)
[2024-05-31] MEDS: Sodium Chloride 0.9% 1,000 ML IV SCH (06:15)
[2024-05-31 07:18] LABS: INR 2.42 (0.86-1.11)
[2024-05-31] MEDS: Tamsulosin 0.4 MG Cap.ER PO SCH (09:07)
[2024-05-31] MEDS: Diltiazem 180 MG Cap.CD PO SCH (09:07)
[2024-05-31] MEDS: Ondansetron 4 MG Tab.DIS PO PRN (09:16)
[2024-05-31] MEDS: Metoprolol Succinate 50 MG Tab.ER PO ONE (12:57)
[2024-05-31] MEDS: Warfarin 5 MG Tab PO ONE (13:00)
[2024-05-31] MEDS: Warfarin Sliding Scale PO SCH (13:01)
[2024-05-31 14:02] VITALS: BP 115/54; PULSE 76
[2024-05-31] MEDS ORDERED: Metoprolol Succinate 50 MG Tab.ER PO SCH (21:00)
[2024-05-31] MEDS ORDERED: Pravastatin 40 MG Tab PO SCH (21:00)
[2024-06-01] MEDS ORDERED: Aspirin 81 MG Tab.Chew PO SCH (09:00)
[2024-06-02] MEDS ORDERED: Warfarin 2.5 MG Tab PO SCH (14:00)
== END 2024-05-31 14:30 | disposition home or self-care (01) ==
LOC: MW.ED 00:39 → MW.MS 04:58
PROVIDERS: ADMIT Internal Medicine; ATTEND Internal Medicine
DX: R07.9 Chest pain, unspecified (principal); I10 Essential (primary) hypertension; I25.10 Atherosclerotic heart disease of native coronary artery without angina pectoris; N40.0 Benign prostatic hyperplasia without lower urinary tract symptoms; I48.91 Unspecified atrial fibrillation; Z95.5 Presence of coronary angioplasty implant and graft; F32.A Depression, unspecified; Z87.891 Personal history of nicotine dependence; Z79.82 Long term (current) use of aspirin; Z79.01 Long term (current) use of anticoagulants; Z79.899 Other long term (current) drug therapy; Z88.5 Allergy status to narcotic agent
CPT/HCPCS: 36415; 71045; 71275; 74174; 80053; 81003; 83690; 83880; 84484; 85025; 85610; 93005; A9270; J2405; J3490; J7030; Q9967; 93010; 96361; 96374; 99284; 99285-25; G0378

== ENCOUNTER 2024-12-03 08:03 | Emergency (ER) | payer MEDICARE, OTHER ==
[2024-12-03] MEDS: Oxymetazoline 0.05% Nasal Spray 30 ML Bottle NAS ONE (08:47)
[2024-12-03 10:29] VITALS: BP 139/71; PULSE 73
== END 2024-12-03 10:28 | disposition home or self-care (01) ==
LOC: MW.ED 08:03
DX: R04.0 Epistaxis (principal); I10 Essential (primary) hypertension; M19.90 Unspecified osteoarthritis, unspecified site; I48.91 Unspecified atrial fibrillation; Z95.5 Presence of coronary angioplasty implant and graft; Z88.5 Allergy status to narcotic agent; Z79.01 Long term (current) use of anticoagulants; Z79.82 Long term (current) use of aspirin; Z79.899 Other long term (current) drug therapy
CPT/HCPCS: 30901; 99283; A9270